=== PATIENT | female | born 1995 | race Caucasian/White ===

== ENCOUNTER 2023-05-01 20:45 | Emergency (ER) | payer MEDICAID ==
[~2023-05-01] VITALS: Ht 160 cm; Wt 82.0 kg
[2023-05-01 20:57] VITALS: BP 122/86; PULSE 87; RESP 18; TEMP 97; O2SAT 99
[2023-05-01 21:42] LABS: HEMATOCRIT. 41.9 % (36.0-48.0); HEMOGLOBIN. 13.7 g/dL (12.0-16.0); MEAN CORPUSCULAR HEMOGLOBIN 25.9 pg (28.0-32.0); MEAN CORPUSCULAR HGB CONC 32.8 g/dL (31.0-37.0); MEAN PLATELET VOLUME 7.9 fl (7.4-10.4); PLATELET 292 x1000/uL (130-400); RED BLOOD CELL COUNT 5.31 mill/uL (4.2-5.4); RED CELL DISTRIBUTION WIDTH 14.7 % (11.6-14.6); WHITE BLOOD COUNT 12.3 x1000/uL (4.5-11.0)
[2023-05-01 21:46] LABS: CHLORIDE 104 mEq/L (98-107); INDEX HEMOLYSI 1 (1-3); INDEX ICTERIC 1 (1-4); INDEX LIPEMIC 1 (1-3); SODIUM 136 mEq/L (136-145)
[2023-05-01 21:49] LABS: PROTHROMBIN TIME 10.3 sec (9.6-11.0)
[2023-05-01 21:56] LABS: ALANINE AMINOTRANSFERASE 94 IU/L (13-61); ALBUMIN 3.9 g/dL (3.4-5.0); ASPARTATE AMINOTRANSFERASE 247 IU/L (15-37); BILIRUBIN TOTAL 0.5 mg/dL (0.1-1.0); CALCIUM 8.9 mg/dL (8.5-10.1); CARBON DIOXIDE 25 mEq/L (21-32); CREATININE 0.7 mg/dL (0.6-1.3); GLUCOSE 166 mg/dL (70-105); PROTEIN TOTAL 8.4 g/dL (6.0-8.3); UREA NITROGEN BLOOD 8 mg/dL (7-21)
[2023-05-01 22:00] LABS: DIFFERENTIAL COMMENT 1
[2023-05-01 22:03] LABS: HCG SCREEN NEGATIVE
[2023-05-01 23:20] LABS: PLATELET ESTIMATE NORMAL
[2023-05-01 23:21] LABS: MICROCYTOSIS 1+
[2023-05-02] MEDS ORDERED: HYDROCODONE/ACETAMINOPHEN 5/325MG TABLET PO ONE (00:30)
== END 2023-05-01 23:00 ==
LOC: ER 20:45
DX: R10.84 Generalized abdominal pain (principal)
CPT/HCPCS: 36415; 74176; 80053; 81025; 84703; 85025; 99284